=== PATIENT | female | born 1995 | race Caucasian/White ===

== ENCOUNTER 2017-05-03 22:46 | Emergency (ER) | payer OTHER ==
[~2017-05-03] VITALS: Ht 154.9 cm; Wt 66.0 kg
[2017-05-04] MEDS ORDERED: KETOROLAC 60MG/2ML VIAL IM ONE (00:15)
[2017-05-04 02:24] VITALS: BP 121/74
== END 2017-05-04 02:25 | disposition home or self-care (01) ==
LOC: ER 22:54
DX: S52.501A Unspecified fracture of the lower end of right radius, initial encounter for closed fracture (principal); V49.49XA Driver injured in collision with other motor vehicles in traffic accident, initial encounter; Y93.89 Activity, other specified; Y92.488 Other paved roadways as the place of occurrence of the external cause
CPT/HCPCS: 29125; 73080; 73090; 73110; 73130; 73562; 81025; 96372; 99284; J1885